=== PATIENT | female | born 1960 | race Caucasian/White ===

== ENCOUNTER → 2017-08-06 | Outpatient (CLI) | payer OTHER ==
[~2017-08-06] MED LIST: CHOL100010 PO; CITA10TA8 PO; LEVO50TA6 PO; MULT-506 PO; PANT40TA PO
[2017-08-06 13:20] LABS: BASO % 0.5 %; BASO ABS # 0.04 K/uL (0-0.2); COMPLETE YES; EOS % 1.4 %; HEMATOCRIT 39.6 % (37-47); IG% 0.3 %; LYMPH % 36.2 %; LYMPH ABS # 2.87 K/uL (1.2-3.4); MEAN CELL VOLUME 90.8 fL (80-100); MEAN CORPUSCULAR HEMOGLOBIN 29.6 pg (25-34); MEAN CORPUSCULAR HGB CONC 32.6 g/dl (32-36); MEAN PLATELET VOLUME 10.5 fL (7.4-10.4); MONO % 11.1 %; NEUT % 50.5 %; PLATELET COUNT 440 K/uL (130-400); RED BLOOD COUNT 4.36 M/uL (4.2-5.4); WHITE BLOOD COUNT 7.92 K/uL (4.8-10.8)
[2017-08-06 13:49] LABS: ESTIMATED AVERAGE GLUCOSE 114 mg/dl; HA1C FLAG Normal (Normal)
[2017-08-06 13:51] LABS: ALT/SGPT 17 U/L (12-78); AST/SGOT 18 U/L (15-37); BLOOD UREA NITROGEN 24 mg/dl (7-18); BUN/CREATININE RATIO 25.9 (10-20); CALCIUM 9.7 mg/dl (8.5-10.1); CARBON DIOXIDE 25 mmol/L (21-32); CHLORIDE 102 mmol/L (98-107); CHOLESTEROL 220 mg/dl (0-200); CREATININE 0.93 mg/dl (0.60-1.20); GLUCOSE 75 mg/dl (70-99); MAGNESIUM 2.1 mg/dl (1.8-2.4); POTASSIUM 3.9 mmol/L (3.5-5.1); SODIUM 134 mmol/L (136-145); TRIGLYCERIDES 162 mg/dl (0-150); VERY LOW DENSITY LIPOPROT CALC 32 mg/dl
[2017-08-06 14:00] LABS: ALB/GLOB RATIO 1.1 (0.9-2); ALKALINE PHOSPHATASE 62 U/L (45-117); CHOLESTEROL/HDL RATIO 4.2; HDL CHOLESTEROL 53 mg/dl; LDL CHOLESTEROL CALCULATED 135 mg/dl; PHOSPHORUS 3.1 mg/dl (2.5-4.9)
[2017-08-06 14:53] LABS: INSULIN FASTING 7.6 mU/L (3-25)
[2017-08-09 15:00] LABS: ALBUMIN 4.2 G/DL (3.8-4.8); GAMMA GLOBULIN 0.8 G/DL (0.8-1.7); TOTAL PROTEIN 6.7 G/DL (6.2-8.3)
== END | disposition home or self-care (01) ==
LOC: C.LABMFLN 08:39
PROVIDERS: ATTEND Internal Medicine Endocrinology, Diabetes & Metabolism
DX: E27.1 Primary adrenocortical insufficiency (principal); E53.8 Deficiency of other specified B group vitamins; E03.9 Hypothyroidism, unspecified; E55.9 Vitamin D deficiency, unspecified; D51.0 Vitamin B12 deficiency anemia due to intrinsic factor deficiency

== ENCOUNTER 2019-05-29 22:41 | Inpatient (IN) ==
[2019-05-29] MEDS ORDERED: SODIUM CHLORIDE 0.9% 1000ML 2,000 ML IV ONE (22:54)
[2019-05-29] MEDS ORDERED: HYDROCORTISONE SOD SUCCINATE 100 MG/2 ML VIAL IV STA (23:03)
[2019-05-29] MEDS ORDERED: CEFEPIME 2,000 MG/20 ML VIAL IV STA (23:04)
[2019-05-29] MEDS ORDERED: VANCOMYCIN CONSULT ACTIVE PRN (23:04)
[2019-05-29] MEDS ORDERED: VANCOMYCIN HCL 1,250 MG in SODIUM CHLORIDE 0.9% 500 ML IV ONE (23:04)
[2019-05-29 23:21] LABS: Basophils # (auto) 0.01 K/uL (0-0.2); Basophils % (auto) 0.1 %; Hematocrit (blood only) 41.9 % (37-47); Hemoglobin 15.3 g/dL (12.0-16.0); Immature Granulocytes # (auto) 0.09 K/uL (0.00-0.02); Immature Granulocytes % (auto) 0.5 %; Lymphocytes # (auto) 1.24 K/uL (1.2-3.4); Lymphocytes % (auto) 6.3 %; Mean Corpuscular Hgb Conc 36.5 g/dL (32-36); Mean Platelet Volume 10.9 fL (7.4-10.4); Monocytes # (auto) 0.91 K/uL (0.11-0.59); Monocytes % (auto) 4.6 %; Neutrophils # (auto) 17.49 K/uL (1.4-6.5); Neutrophils % (auto) 88.5 %; Platelet Count 330 K/uL (130-400); RDW Coefficient of Variation 12.5 % (11.5-14.5); RDW Standard Deviation 39.3 fL (36.4-46.3); Red Blood Count 4.87 M/uL (4.2-5.4); White Blood Count 19.74 K/uL (4.8-10.8)
[2019-05-29 23:33] LABS: INR 1.1 (0.9-1.1); Partial Thromboplastin Ratio 1.1; Prothrombin Time 11.4 Seconds (9.0-12.0)
[2019-05-29 23:37] LABS: Base Excess VBG -2.5 mEq/L; HCO3 VBG 18 mmol/L; PCO2 VBG 22 mmHg (38-50); PO2 VBG 26 mmHg; pH VBG 7.52 (7.36-7.41)
[2019-05-29 23:39] LABS: Albumin Level 4.1 gm/dl (3.4-5.0); BUN Creatinine Ratio 14.6 (10-20); Bilirubin Direct 0.3 mg/dl (0-0.2); Creatinine Clr Calc Pharmacy 18.8 ml/min; Est GFR (African American) 18.7; Est GFR (Non-African American) 16.1; Magnesium 1.9 mg/dl (1.8-2.4); Potassium 3.9 mmol/L (3.5-5.1)
[2019-05-29 23:45] LABS: Oxygen Saturation VBG < 60.0 %
[2019-05-29 23:53] LABS: Bilirubin,Total 1.8 mg/dl (0.2-1); Globulin 4.3 gm/dl (2.5-4.0); Phosphorus 2.6 mg/dl (2.5-4.9); Total Protein 8.4 gm/dl (6.4-8.2); Troponin I 0.05 ng/ml (0-0.045)
--- NOTE | 2019-05-30 00:04 | Emergency Department Note ---
Entered by Lissy Purcell acting as a scribe for Tavo Duke MD History of Present Illness General Chief complaint: Flu Like Symptoms Stated complaint: FLU, PAIN, SOB, ANNE'S DISEASE Time Seen by Provider: 05/29/19 22:54 Source: patient History of Present Illness Onset (ago): day(s) 1 Location: chest Pain Consistency: + other (persistent ) Maximum Pain Intensity: 6 Quality: + other (cough and congestion) Associated symptoms: + cough and + fever/chills Treatments prior to arrival: other The patient is a 58 year old female who presents to the Emergency Room with complaints of persistent cough and congestion beginning yesterday. The patient states that she has felt feverish during this time, but states that she has not measured her temperature. The patient reports coughing up some phlegm after she eats. 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 Home Medications Home Medications Medication Instructions Recorded Confirmed Type cholecalciferol (vitamin D3) 1,000 unit PO DAILY 05/30/19 05/30/19 History [Vitamin D3] hydrocortisone See Rx Instructions .ROUTE .COMPLEX 05/30/19 05/30/19 History levothyroxine 50 mcg PO DAILY 05/30/19 05/30/19 History multivitamin [Multiple Vitamins] 1 tab PO DAILY 05/30/19 05/30/19 History trazodone 50 mg PO HS 05/30/19 05/30/19 History Allergies Allergy/AdvReac Type Severity Reaction Status Date / Time acetaminophen Allergy Unknown insomnia,it Verified 01/16/16 13:45 ney fludrocortisone Allergy Unknown Palpitations,nightmares, Verified 05/30/19 03:41 numbness in hands hydrocodone Allergy Unknown insomnia,it Verified 01/16/16 13:45 ney Past Med/Surg History Medical History Anne disease Family History Other No significant family history Social History Preferred Language: Bulgarian Communication Ability: Effective Business Professor Required: No Beliefs That Will Affect Care: None Current Living Situation: Spouse Current Living Situation Comment: 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 and A total of 10 systems reviewed and were otherwise negative Physical Exam Vital Signs Vital Signs - 24 hr 05/29/19 22:45 05/29/19 23:15 05/29/19 23:25 Temperature 36.7 C Temperature Source Oral Sepsis Recent Fever Within 48 Hours No Sepsis New/Unexplained Change in Mental Status No Sepsis Action Taken by Nursing No Action Required Pulse Rate 111 H Pulse Rate [Apical] 92 H Pulse Rhythm Regular Pulse Strength Normal Respiratory Rate 22 20 Respiratory Effort / Characteristics Non-Labored Spontaneous Respiratory Depth Normal Respiratory Pattern Regular Blood Pressure 74/44 L Blood Pressure [Left Arm] 107/65 Blood Pressure Mean 54 Blood Pressure Mean [Left Arm] 79 Pulse Oximetry 98 98 98 Oxygen Delivery Method Room Air Room Air Room Air 05/29/19 23:31 05/29/19 23:50 05/30/19 00:00 Temperature Temperature Source Sepsis Recent Fever Within 48 Hours Sepsis New/Unexplained Change in Mental Status Sepsis Action Taken by Nursing Pulse Rate 87 88 Pulse Rate [Apical] 88 Pulse Rhythm Pulse Strength Respiratory Rate 20 18 18 Respiratory Effort / Characteristics Respiratory Depth Respiratory Pattern Blood Pressure 107/65 113/94 Blood Pressure [Left Arm] 113/94 Blood Pressure Mean 79 100 Blood Pressure Mean [Left Arm] 100 Pulse Oximetry 97 Oxygen Delivery Method Room Air GENERAL: Awake, alert, ill-appearing, in no distress HENT: Normocephalic, atraumatic. Oropharynx with dry mucous membranes and otherwise unremarkable. EYES: Normal conjunctiva. Sclera non-icteric. EOMI. No nystamgus. PEARRL. NECK: Supple. No nuchal rigidity. FROM. No JVD. RESPIRATORY: CTAB. CARDIAC: Tachycardic rate, normal rhythm. Extremities warm and well perfused. Pulses equal. ABDOMEN: Soft, non-distended. No tenderness to palpation. No rebound or guarding. No masses. RECTAL: Deferred. MUSCULOSKELETAL: Chest examination reveals no tenderness. The back is symmetrical on inspection without obvious abnormality. There is no CVA tenderness to palpation. No joint edema. LOWER EXTREMITIES: Calves are equal size bilaterally and non-tender. No edema. No discoloration. NEURO: Normal sensorium. No sensory or motor deficits noted. SKIN: Cool and clammy. Mild hyperpigmentation of skin. No rash or jaundice noted. Course 2259: Past medical records reviewed. The patient was evaluated in room B3B. A complete history and physical exam was performed. 2335: I [facility] the [facility] and he was made aware of the patient. 0138: I discussed the [facility] who accepts the patient for further evaluation. Administered Medications Enoxaparin Sodium (Lovenox) 30 mg SQ Q24H [facility] Stop: 06/29/19 08:59 Last Admin: 05/30/19 08:15 Dose: Not Given Documented by: [id number] Ceftriaxone Sodium 1,000 mg/ (Dextrose) 60 mls @ 100 mls/hr IV Q24H [place]; Protocol Stop: 06/01/19 07:59 Last Infusion: 05/30/19 08:50 Dose: 0 mls/hr Documented by: [id number] Admin: 05/30/19 08:14 Dose: 100 mls/hr Documented by: [id number] Azithromycin 500 mg/ Dextrose 255 mls @ 125 mls/hr IV Q24H [place]; Protocol Stop: 06/01/19 09:59 Last Admin: 05/30/19 10:32 Dose: 125 mls/hr Documented by: [id number] Famotidine 20 mg/ Syringe 5 mls @ 2.5 mls/min IV Q12H [place] Stop: 06/29/19 08:59 Last Admin: 05/30/19 09:32 Dose: 2.5 mls/min Documented by: [id number] Hydrocortisone Sodium (Succinate 100 mg/ Syringe) 2 mls @ 4 mls/min IV Q8H [place] Stop: 06/29/19 07:59 Last Admin: 05/30/19 08:14 Dose: 4 mls/min Documented by: [id number] Sodium Chloride (Nss 1000ml) 1,000 mls @ 125 mls/hr IV .Q8H [place] Stop: 06/29/19 07:29 Last Admin: 05/30/19 08:13 Dose: 125 mls/hr Documented by: [id number] Levothyroxine Sodium (Synthroid) 50 mcg PO DAILYBB [place] Stop: 06/29/19 06:29 Last Admin: 05/30/19 05:54 Dose: 50 mcg Documented by: [id number] Multivitamins (Multivitamin Tab) 1 tab PO DAILY [place] Stop: 06/29/19 08:59 Last Admin: 05/30/19 08:15 Dose: 1 tab Documented by: [id number] Vitamin D (Vitamin D3) 1,000 units PO DAILY [place] Stop: 06/29/19 08:59 Last Admin: 05/30/19 08:15 Dose: 1,000 units Documented by: [id number] Discontinued Medications Hydrocortisone Sodium Succinate (Solu-Cortef) 100 mg IV NOW STA Stop: 05/29/19 23:04 Last Admin: 05/29/19 23:22 Dose: 100 mg Documented by: [id number] Sodium Chloride (Nss 1000ml) 2,000 mls @ 999 mls/hr IV .Q2H1M ONE Stop: 05/30/19 00:54 Last Infusion: 05/30/19 01:20 Dose: 0 mls/hr Documented by: [id number] Admin: 05/29/19 23:08 Dose: 999 mls/hr Documented by: [id number] Cefepime HCl (Maxipime) 2,000 mg in 20 mls @ 5 mls/min IV NOW STA; Protocol Stop: 05/29/19 23:07 Last Admin: 05/29/19 23:22 Dose: 5 mls/min Documented by: [id number] Vancomycin HCl 1,250 mg/ (Sodium Chloride) 525 mls @ 200 mls/hr IV NOW ONE; Protocol Stop: 05/30/19 01:41 Last Infusion: 05/30/19 03:18 Dose: 0 mls/hr Documented by: [id number] Admin: 05/30/19 00:40 Dose: 200 mls/hr Documented by: [id number] Doxycycline Hyclate 100 mg/ (Dextrose) 110 mls @ 50 mls/hr IV NOW STA Stop: 05/30/19 02:47 Last Infusion: 05/30/19 04:09 Dose: 0 mls/hr Documented by: [id number] Admin: 05/30/19 01:57 Dose: 50 mls/hr Documented by: [id number] Famotidine (Pepcid 20mg Iv Push) 20 mg in 5 mls @ 2.5 mls/min IV NOW STA Stop: 05/30/19 01:05 Last Admin: 05/30/19 01:26 Dose: 2.5 mls/min Documented by: [id number] Parenteral Electrolytes (Normosol-R) 500 mls @ 999 mls/hr IV .Q31M ONE Stop: 05/30/19 08:14 Last Infusion: 05/30/19 10:34 Dose: 0 mls/hr Documented by: [id number] Admin: 05/30/19 09:50 Dose: 999 mls/hr Documented by: [id number] Medical Decision Making Differential Diagnosis Differential diagnosis: Etiologies such as viral syndrome, otitis, pharyngitis, pneumonia, influenza, meningitis, urinary tract infection, sepsis, bacteremia, as well as others were entertained. Medical Records Attestation: I reviewed the patient's medical records. Home Medications Current Medication List: was personally reviewed by me Laboratory Data Attestation: I reviewed the patient's lab results. Result diagrams: 05/29/19 23:05 05/29/19 23:05 Lab Results 05/29/19 05/29/19 05/29/19 Range/Units 23:05 23:05 23:05 WBC 19.74 H (4.8-10.8) K/uL RBC 4.87 (4.2-5.4) M/uL Hgb 15.3 (12.0-16.0) g/dL Hct 41.9 (37-47) % MCV 86.0 (80-100) fL MCH 31.4 (25-34) pg MCHC 36.5 H (32-36) g/dL RDW Std Deviation 39.3 (36.4-46.3) fL RDW Coeff of Kait 12.5 (11.5-14.5) % Plt Count 330 (130-400) K/uL MPV 10.9 H (7.4-10.4) fL Immature Gran % (Auto) 0.5 % Neut % (Auto) 88.5 % Lymph % (Auto) 6.3 % [place] % (Auto) 4.6 % Eos % (Auto) 0.0 % Baso % (Auto) 0.1 % Immature Gran # (Auto) 0.09 H (0.00-0.02) K/uL Neut # (Auto) 17.49 H (1.4-6.5) K/uL Lymph # (Auto) 1.24 (1.2-3.4) K/uL [place] # (Auto) 0.91 H (0.11-0.59) K/uL Eos # (Auto) 0.00 (0-0.5) K/uL Baso # (Auto) 0.01 (0-0.2) K/uL PT 11.4 (9.0-12.0) Seconds INR 1.1 (0.9-1.1) APTT 31.0 (21.0-31.0) Seconds PTT Ratio 1.1 VBG pH (7.36-7.41) VBG pCO2 (38-50) mmHg VBG pO2 mmHg VBG HCO3 mmol/L VBG O2 Saturation % VBG Base Excess mEq/L Barometric Pressure mm/Hg Sodium (136-145) mmol/L Potassium (3.5-5.1) mmol/L Chloride (98-107) mmol/L Carbon Dioxide (21-32) mmol/L Anion Gap (3-11) BUN (7-18) mg/dl Creatinine (0.6-1.2) mg/dl Est Cr Clr Drug Dosing ml/min Est GFR ( Amer) Est GFR (Non-Af Amer) BUN/Creatinine Ratio (10-20) Glucose (70-99) mg/dl Lactate (0.4-2.0) mmol/L Calcium (8.5-10.1) mg/dl Phosphorus (2.5-4.9) mg/dl Magnesium (1.8-2.4) mg/dl Total Bilirubin (0.2-1) mg/dl Direct Bilirubin (0-0.2) mg/dl AST (15-37) U/L ALT (12-78) U/L Alkaline Phosphatase (45-117) U/L Troponin I (0-0.045) ng/ml Total Protein (6.4-8.2) gm/dl Albumin (3.4-5.0) gm/dl Globulin (2.5-4.0) gm/dl Albumin/Globulin Ratio (0.9-2) Procalcitonin 17.31 H (0-0.5) ng/ml TSH (0.300-4.500) uIu/ml Urine Color Urine Appearance (Clear) Urine pH (4.5-7.5) Ur Specific [place] (1.000-1.030) Urine Protein (Negative) Urine Glucose (UA) (Negative) Urine Ketones (Negative) Urine Blood (Negative) Urine Nitrite (Negative) Urine Bilirubin (Negative) Urine Urobilinogen (Negative) Ur Leukocyte Esterase (Negative) Urine WBC (Auto) (0-5) /hpf Urine RBC (Auto) (0-4) /hpf U Hyaline Cast (Auto) (0-5) /lpf U Epithel Cells (Auto) (0-5) /lpf Urine Bacteria (Auto) (Negative) Urine Mucus (None Prsent) Urine Yeast 05/29/19 05/29/19 05/29/19 Range/Units 23:05 23:05 23:23 WBC (4.8-10.8) K/uL RBC (4.2-5.4) M/uL Hgb (12.0-16.0) g/dL Hct (37-47) % MCV (80-100) fL MCH (25-34) pg MCHC (32-36) g/dL RDW Std Deviation (36.4-46.3) fL RDW Coeff of Kait (11.5-14.5) % Plt Count (130-400) K/uL MPV (7.4-10.4) fL Immature Gran % (Auto) % Neut % (Auto) % Lymph % (Auto) % [place] % (Auto) % Eos % (Auto) % Baso % (Auto) % Immature Gran # (Auto) (0.00-0.02) K/uL Neut # (Auto) (1.4-6.5) K/uL Lymph # (Auto) (1.2-3.4) K/uL [place] # (Auto) (0.11-0.59) K/uL Eos # (Auto) (0-0.5) K/uL Baso # (Auto) (0-0.2) K/uL PT (9.0-12.0) Seconds INR (0.9-1.1) APTT (21.0-31.0) Seconds PTT Ratio VBG pH 7.52 H (7.36-7.41) VBG pCO2 22 L (38-50) mmHg VBG pO2 26 mmHg VBG HCO3 18 mmol/L VBG O2 Saturation < 60.0 % VBG Base Excess -2.5 mEq/L Barometric Pressure 728.2 mm/Hg Sodium 133 L (136-145) mmol/L Potassium 3.9 (3.5-5.1) mmol/L Chloride 98 (98-107) mmol/L Carbon Dioxide 18 L (21-32) mmol/L Anion Gap 17.0 H (3-11) BUN 45 H (7-18) mg/dl Creatinine 3.05 H (0.6-1.2) mg/dl Est Cr Clr Drug Dosing 18.8 ml/min Est GFR ( Amer) 18.7 Est GFR (Non-Af Amer) 16.1 BUN/Creatinine Ratio 14.6 (10-20) Glucose 174 H (70-99) mg/dl Lactate 2.5 H* (0.4-2.0) mmol/L Calcium 10.0 (8.5-10.1) mg/dl Phosphorus 2.6 (2.5-4.9) mg/dl Magnesium 1.9 (1.8-2.4) mg/dl Total Bilirubin 1.8 H (0.2-1) mg/dl Direct Bilirubin 0.3 H (0-0.2) mg/dl AST 31 (15-37) U/L ALT 39 (12-78) U/L Alkaline Phosphatase 67 (45-117) U/L Troponin I 0.050 H* (0-0.045) ng/ml Total Protein 8.4 H (6.4-8.2) gm/dl Albumin 4.1 (3.4-5.0) gm/dl Globulin 4.3 H (2.5-4.0) gm/dl Albumin/Globulin Ratio 1.0 (0.9-2) Procalcitonin (0-0.5) ng/ml TSH 1.510 (0.300-4.500) uIu/ml Urine Color Urine Appearance (Clear) Urine pH (4.5-7.5) Ur Specific [place] (1.000-1.030) Urine Protein (Negative) Urine Glucose (UA) (Negative) Urine Ketones (Negative) Urine Blood (Negative) Urine Nitrite (Negative) Urine Bilirubin (Negative) Urine Urobilinogen (Negative) Ur Leukocyte Esterase (Negative) Urine WBC (Auto) (0-5) /hpf Urine RBC (Auto) (0-4) /hpf U Hyaline Cast (Auto) (0-5) /lpf U Epithel Cells (Auto) (0-5) /lpf Urine Bacteria (Auto) (Negative) Urine Mucus (None Prsent) Urine Yeast 05/30/19 Range/Units 00:45 WBC (4.8-10.8) K/uL RBC (4.2-5.4) M/uL Hgb (12.0-16.0) g/dL Hct (37-47) % MCV (80-100) fL MCH (25-34) pg MCHC (32-36) g/dL RDW Std Deviation (36.4-46.3) fL RDW Coeff of Kait (11.5-14.5) % Plt Count (130-400) K/uL MPV (7.4-10.4) fL Immature Gran % (Auto) % Neut % (Auto) % Lymph % (Auto) % [place] % (Auto) % Eos % (Auto) % Baso % (Auto) % Immature Gran # (Auto) (0.00-0.02) K/uL Neut # (Auto) (1.4-6.5) K/uL Lymph # (Auto) (1.2-3.4) K/uL [place] # (Auto) (0.11-0.59) K/uL Eos # (Auto) (0-0.5) K/uL Baso # (Auto) (0-0.2) K/uL PT (9.0-12.0) Seconds INR (0.9-1.1) APTT (21.0-31.0) Seconds PTT Ratio VBG pH (7.36-7.41) VBG pCO2 (38-50) mmHg VBG pO2 mmHg VBG HCO3 mmol/L VBG O2 Saturation % VBG Base Excess mEq/L Barometric Pressure mm/Hg Sodium (136-145) mmol/L Potassium (3.5-5.1) mmol/L Chloride (98-107) mmol/L Carbon Dioxide (21-32) mmol/L Anion Gap (3-11) BUN (7-18) mg/dl Creatinine (0.6-1.2) mg/dl Est Cr Clr Drug Dosing ml/min Est GFR ( Amer) Est GFR (Non-Af Amer) BUN/Creatinine Ratio (10-20) Glucose (70-99) mg/dl Lactate (0.4-2.0) mmol/L Calcium (8.5-10.1) mg/dl Phosphorus (2.5-4.9) mg/dl Magnesium (1.8-2.4) mg/dl Total Bilirubin (0.2-1) mg/dl Direct Bilirubin (0-0.2) mg/dl AST (15-37) U/L ALT (12-78) U/L Alkaline Phosphatase (45-117) U/L Troponin I (0-0.045) ng/ml Total Protein (6.4-8.2) gm/dl Albumin (3.4-5.0) gm/dl Globulin (2.5-4.0) gm/dl Albumin/Globulin Ratio (0.9-2) Procalcitonin (0-0.5) ng/ml TSH (0.300-4.500) uIu/ml Urine Color Dark Yellow Urine Appearance Cloudy A (Clear) Urine pH 5.0 (4.5-7.5) Ur Specific [place] 1.021 (1.000-1.030) Urine Protein 1+ H (Negative) Urine Glucose (UA) Negative (Negative) Urine Ketones 1+ H (Negative) Urine Blood 1+ H (Negative) Urine Nitrite Negative (Negative) Urine Bilirubin Negative (Negative) Urine Urobilinogen Negative (Negative) Ur Leukocyte Esterase 1+ H (Negative) Urine WBC (Auto) 5-10 H (0-5) /hpf Urine RBC (Auto) 0-4 (0-4) /hpf U Hyaline Cast (Auto) >30 H (0-5) /lpf U Epithel Cells (Auto) >30 H (0-5) /lpf Urine Bacteria (Auto) Negative (Negative) Urine Mucus Present A (None Prsent) Urine Yeast Not Reportable Imaging Data Attestation: I personally reviewed and interpreted this imaging study as follows: My Impression: CHEST X-RAY: No focal infiltrate. ECG Data Attestation: I personally reviewed and interpreted this ECG as follows: Indication: tachycardia Rate (beats per minute): 86 Rhythm: normal sinus Findings: + other (nonspecific T wave abnormalities) and + prolonged QT (538); no acute ischemic change Blood Pressure Blood Pressure Findings: Normal blood pressure MDM Narrative The patient is a pleasant 58-year-old woman with a past medical history of Ad dison's disease who presents emergency department with cough congestion and feverishness and chills over the past couple of days but continued to feel worse despite taking as needed hydrocortisone at home per hpi. On arrival patient is ill-appearing, afebrile with heart rate in the 90-100s but hypotensive with systolic blood pressure in the 70s. She is mentating normally. She appears clinically dry. Skin is cool and clammy. Given the patient's immune compromised status she is managed for sepsis with blood cultures drawn and treated empirically with cefepime, vancomycin, doxycycline. She was given 2 L of normal saline and given her hypotension she was treated with stress dose hydrocortisone, 100 mg IV. EKG without overt acute ischemia. Chest x-ray per my preliminary review with no focal infiltrates. WBC 19.7. H/H and platelets within normal limits. VBG demonstrates alkalosis with pH of 7.5 and PCO2 of 22 reflecting the patient's hyperventilation on arrival. Lactate 2.5. Chemistry demonstrates an anion gap acidosis with anion gap of 17 and bicarb of 18 as well as acute renal failure with a creatinine of 3. Total bilirubin 1.8 and direct bilirubin of 0.3. LFTs otherwise unremarkable. Troponin elevated 0.05 likely demand in the setting of the patient's critical illness. Procalcitonin 17 raising suspicion for sepsis. UA with WBC 5-10 but no bacteria and epithelial c ells >30, not convincing for infection. Upon re-evaluation Patient slightly improved after IVF hydration an stress dose steroids with BP 110s/90s. Case was discussed with Dr. Daniel, [facility] hospitalist, who will evaluate the patient for admission. Impression & Plan Sepsis, Acute renal failure, Acute adrenal insufficiency, Elevated troponin Critical Care Time Critical Care Time: Yes Total Critical Care Time: 80 I have personally spent 80 minutes of critical care time in the direct management of this patient. This includes bedside care, interpretation of diagnostic studies, and testing, discussion with consultants, patient, and famil y members, and other required patient management activities. This 80 minutes is in excess of all separately billable procedures. Discharge Plan Visit Data *Final* Discharge Date/Time: 05/30/19 02:30 Chief Complaint: Flu Like Symptoms Stated Complaint: FLU, PAIN, SOB, ANNE'S DISEASE ED Provider: Tavo Duke Discharge Problem: Sepsis, Acute renal failure, Acute adrenal insufficiency, Elevated troponin Patient Disposition: Admitted As Inpatient Discharge Instructions Interventions: ED Discharge Assessment Last Done: 05/30/19 02:30 Discharge Problem: Sepsis Qualifiers: Sepsis type: sepsis due to unspecified organism Qualified Code(s): A41.9 - Sepsis, unspecified organism Acute renal failure Qualifiers: Acute renal failure type: unspecified Qualified Code(s): N17.9 - Acute kidney failure, unspecified The scribe's documentation has been prepared under my direction and personally reviewed by me in its entirety. I confirm that the note above accurately reflects all work, treatment, procedures, and medical decision making performed by me.
[2019-05-30] MEDS ORDERED: DOXYCYCLINE HYCLATE 100 MG in DEXTROSE 5% 100 ML IV STA (00:36)
--- NOTE | 2019-05-30 00:59 | History & Physical Report ---
Date of Service May 30, 2019 Assessment & Plan (1) [place] disease: [place] disease with acute adrenal insufficiency likely secondary to sepsis and acute kidney injury- Patient is not able to take fludrocortisone due to allergic reaction. She did bolus herself with oral hydrocortisone as she has been directed prior to hospital. Place on hydrocortisone 100 mg IV every 8 hours. Follow clinical response. Treat underlying process. Present on Admission?: Yes (2) Acute adrenal insufficiency: See above Present on Admission?: Yes (3) Acute kidney injury: Creatinine 3.05 upon admission, with baseline 0.93 on 08/06/2017. Rehydrating for septic protocol, with normal saline at 30 mils per kilogram, and then continue rehydration with IV fluids. Follow serial laboratories in the a.m. Further management based on progress with laboratories. Present on Admission?: Yes (4) Sepsis: Sepsis with hypotension responsive to IV fluids, with lowest blood pressure 85/60. Procalcitonin elevated 17.31, and lactate elevated 2.5. Her principal area of symptomatology is pulmonary. Empiric treatment with ceftriaxone IV and azithromycin IV. Follow culture results. Present on Admission?: Yes (5) Hypotension: See above Present on Admission?: Yes (6) Elevated troponin: Troponin is mildly elevated at 0.05. Patient has no symptoms referable to chest discomfort. Likely associate with acute kidney injury. Will follow serial troponins and consult cardiology. Monitor Present on Admission?: Yes (7) Hyperglycemia: May be part of a stress response, may be part of increased dosages of oral hydrocortisone that she bolused herself with. Check hemoglobin A1c Present on Admission?: Yes (8) Hypothyroidism (acquired): Continue levothyroxine sodium 50 mcg daily. TSH level is normal. Present on Admission?: Yes History of Present Illness Chief Complaint: The patient presents to the emergency department with flulike symptoms, generalized myalgias and arthralgias, and shortness of breath, without clear cause. Primary Care Provider: Harlan Garay MD The patient is a 50-year-old female with past medical history including [place] disease, who had developed generalized myalgias arthralgias and flu type symptoms over the past 48 hours. She had taken additional hydrocortisone pills that she is directed when she gets ill, but has had significant progression of symptoms. She has not had any sick exposures or recent travels. She reports that she feels very cold and had difficulty stopping shivering. She is having significant reflux at this time. Allergies Allergy/AdvReac Type Severity Reaction Status Date / Time acetaminophen Allergy Unknown insomnia,it Verified 01/16/16 13:45 ney fludrocortisone Allergy Unknown Palpitations,nightmares, Verified 05/30/19 03:41 numbness in hands hydrocodone Allergy Unknown insomnia,it Verified 01/16/16 13:45 ney Home Medications Home Medications Medication Instructions Recorded Confirmed Type cholecalciferol (vitamin D3) 1,000 unit PO DAILY 05/30/19 05/30/19 History [Vitamin D3] hydrocortisone See Rx Instructions .ROUTE .COMPLEX 05/30/19 05/30/19 History levothyroxine 50 mcg PO DAILY 05/30/19 05/30/19 History multivitamin [Multiple Vitamins] 1 tab PO DAILY 05/30/19 05/30/19 History trazodone 50 mg PO HS 05/30/19 05/30/19 History Past Med/Surg History Medical History [place] disease Family History Other No significant family history Social History Preferred Language: Irish Communication Ability: Effective Motor Checker Required: No Beliefs That Will Affect Care: None Current Living Situation: Spouse Current Living Situation Comment: 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), 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 Other Information That Helps Us Care for You: No Feels Safe at Home: Yes Safety Concerns: Feels Safe At This Time Smoking Status: Never smoker Do You Dip or Chew Tobacco: No Second Hand Exposure: No Hx Alcohol Use: No Hx Substance Use: No Review of Systems Review of Systems: The patient denies palpitations, lower extremity swelling, sore throat, nausea, vomiting, diarrhea , constipation, pelvic pain, blood in urine or stool, dysuria, urinary frequency or urgency, lightheadedness, dizziness, headache, memory loss, loss of consciousness, rash, abnormal bruising or bleeding, imbalance, focal or generalized weakness, numbness or tingling in arms or legs, back or neck pain, or night sweats. The review of systems is otherwise negative other than for that already noted above, and at least 10 systems have been reviewed. Physical Exam Physical Exam: The patient is awake, alert and oriented 3, looks fatigued, is shivering, normocephalic and atraumatic, lying in bed and in mild to moderate distress. HEENT--PERRL, EOMI, mucous membranes and oropharynx dry. Neck--supple. No JVD. No bruits. Thyroid normal, trachea midline, no adenopathy. Heart--normal S1 and S2. No murmurs, rubs or gallops. Lungs--clear bilaterally, no respiratory distress, no accessory muscle use. Abdomen--normal bowel sounds and soft. Nontender. Nondistended, no hernias or masses, no organomegaly. Extremities--no cyanosis or clubbing. No edema. There are good distal pulses b/l. Dermatologic--normal skin turgor, normal color, no abnormal lymph nodes, no rash. Neurologic--cranial nerves II through XII grossly intact. Rheumatologic--normal range of motion. Psychiatric--normal affect. Results & Data Vital Signs (Past 12 Hours) Vital Signs Temp Pulse Pulse Resp BP BP Pulse Ox 05/30/19 00:00 88 18 113/94 97 05/29/19 23:25 92 H 20 107/65 98 05/29/19 23:15 98 05/29/19 22:45 98.1 F 111 H 22 74/44 L 98 Laboratory Results Laboratory Results WBC 19.74 K/uL (4.8-10.8) H 05/29/19 23:05 RBC 4.87 M/uL (4.2-5.4) 05/29/19 23:05 Hgb 15.3 g/dL (12.0-16.0) 05/29/19 23:05 Hct 41.9 % (37-47) 05/29/19 23:05 MCV 86.0 fL (80-100) 05/29/19 23:05 MCH 31.4 pg (25-34) 05/29/19 23:05 MCHC 36.5 g/dL (32-36) H 05/29/19 23:05 RDW Std Deviation 39.3 fL (36.4-46.3) 05/29/19 23:05 RDW Coeff of Kait 12.5 % (11.5-14.5) 05/29/19 23:05 Plt Count 330 K/uL (130-400) 05/29/19 23:05 MPV 10.9 fL (7.4-10.4) H 05/29/19 23:05 Immature Gran % (Auto) 0.5 % 05/29/19 23:05 Neut % (Auto) 88.5 % 05/29/19 23:05 Lymph % (Auto) 6.3 % 05/29/19 23:05 Grant % (Auto) 4.6 % 05/29/19 23:05 Eos % (Auto) 0.0 % 05/29/19 23:05 Baso % (Auto) 0.1 % 05/29/19 23:05 Immature Gran # (Auto) 0.09 K/uL (0.00-0.02) H 05/29/19 23:05 Neut # (Auto) 17.49 K/uL (1.4-6.5) H 05/29/19 23:05 Lymph # (Auto) 1.24 K/uL (1.2-3.4) 05/29/19 23:05 Grant # (Auto) 0.91 K/uL (0.11-0.59) H 05/29/19 23:05 Eos # (Auto) 0.00 K/uL (0-0.5) 05/29/19 23:05 Baso # (Auto) 0.01 K/uL (0-0.2) 05/29/19 23:05 PT 11.4 Seconds (9.0-12.0) 05/29/19 23:05 INR 1.1 (0.9-1.1) 05/29/19 23:05 APTT 31.0 Seconds (21.0-31.0) 05/29/19 23:05 PTT Ratio 1.1 05/29/19 23:05 VBG pH 7.52 (7.36-7.41) H 05/29/19 23:23 VBG pCO2 22 mmHg (38-50) L 05/29/19 23:23 VBG pO2 26 mmHg 05/29/19 23:23 VBG HCO3 18 mmol/L 05/29/19 23:23 VBG O2 Saturation < 60.0 % 05/29/19 23:23 VBG Base Excess -2.5 mEq/L 05/29/19 23:23 Barometric Pressure 728.2 mm/Hg 05/29/19 23:23 Sodium 133 mmol/L (136-145) L 05/29/19 23:05 Potassium 3.9 mmol/L (3.5-5.1) 05/29/19 23:05 Chloride 98 mmol/L (98-107) 05/29/19 23:05 Carbon Dioxide 18 mmol/L (21-32) L 05/29/19 23:05 Anion Gap 17.0 (3-11) H 05/29/19 23:05 BUN 45 mg/dl (7-18) H 05/29/19 23:05 Creatinine 3.05 mg/dl (0.6-1.2) H 05/29/19 23:05 Est Cr Clr Drug Dosing 18.8 ml/min 05/29/19 23:05 Est GFR ( Amer) 18.7 05/29/19 23:05 Est GFR (Non-Af Amer) 16.1 05/29/19 23:05 BUN/Creatinine Ratio 14.6 (10-20) 05/29/19 23:05 Glucose 174 mg/dl (70-99) H 05/29/19 23:05 Lactate 2.5 mmol/L (0.4-2.0) H* 05/29/19 23:05 Calcium 10.0 mg/dl (8.5-10.1) 05/29/19 23:05 Phosphorus 2.6 mg/dl (2.5-4.9) 05/29/19 23:05 Magnesium 1.9 mg/dl (1.8-2.4) 05/29/19 23:05 Total Bilirubin 1.8 mg/dl (0.2-1) H 05/29/19 23:05 Direct Bilirubin 0.3 mg/dl (0-0.2) H 05/29/19 23:05 AST 31 U/L (15-37) 05/29/19 23:05 ALT 39 U/L (12-78) 05/29/19 23:05 Alkaline Phosphatase 67 U/L (45-117) 05/29/19 23:05 Troponin I 0.050 ng/ml (0-0.045) H* 05/29/19 23:05 Total Protein 8.4 gm/dl (6.4-8.2) H 05/29/19 23:05 Albumin 4.1 gm/dl (3.4-5.0) 05/29/19 23:05 Globulin 4.3 gm/dl (2.5-4.0) H 05/29/19 23:05 Albumin/Globulin Ratio 1.0 (0.9-2) 05/29/19 23:05 Procalcitonin 17.31 ng/ml (0-0.5) H 05/29/19 23:05 TSH 1.510 uIu/ml (0.300-4.500) 05/29/19 23:05 Urine Color Dark Yellow 05/30/19 00:45 Urine Appearance Cloudy (Clear) A 05/30/19 00:45 Urine pH 5.0 (4.5-7.5) 05/30/19 00:45 Ur Specific [place] 1.021 (1.000-1.030) 05/30/19 00:45 Urine Protein 1+ (Negative) H 05/30/19 00:45 Urine Glucose (UA) Negative (Negative) 05/30/19 00:45 Urine Ketones 1+ (Negative) H 05/30/19 00:45 Urine Blood 1+ (Negative) H 05/30/19 00:45 Urine Nitrite Negative (Negative) 05/30/19 00:45 Urine Bilirubin Negative (Negative) 05/30/19 00:45 Urine Urobilinogen Negative (Negative) 05/30/19 00:45 Ur Leukocyte Esterase 1+ (Negative) H 05/30/19 00:45 Urine WBC (Auto) 5-10 /hpf (0-5) H 05/30/19 00:45 Urine RBC (Auto) 0-4 /hpf (0-4) 05/30/19 00:45 U Hyaline Cast (Auto) >30 /lpf (0-5) H 05/30/19 00:45 U Epithel Cells (Auto) >30 /lpf (0-5) H 05/30/19 00:45 Urine Bacteria (Auto) Negative (Negative) 05/30/19 00:45 Urine Mucus Present (None Prsent) A 05/30/19 00:45 Urine Yeast Not Reportable 05/30/19 00:45 Code Status & VTE Plan Code Status Full code VTE Prophylaxis Plan VTE Prophylaxis will be ordered: Yes PG Care Time/CCT Total # of Minutes Spent Total Time Spent with Patient: Total time spent is greater than 50% in coordination of care (as documented) at patient's floor/unit and/or counseling patient: (1) Sepsis Sepsis type: sepsis due to unspecified organism Qualified Code(s): A41.9 - Sepsis, unspecified organism
[2019-05-30] MEDS ORDERED: FAMOTIDINE 20MG IV PUSH 20 MG/5 ML SYR IV STA (01:04)
[2019-05-30 01:05] LABS: Appearance Urine Cloudy (Clear); Bacteria Urine Automated Negative (Negative); Bilirubin Urine Negative (Negative); Color Urine Dark Yellow; Epithelial Cell Urine Auto >30 /lpf (0-5); Glucose Urine UA Negative (Negative); Ketones Urine 1+ (Negative); Leukocyte Esterase Urine 1+ (Negative); Nitrite Urine Negative (Negative); Protein Urine 1+ (Negative); Specific Gravity Urine 1.021 (1.000-1.030); Urobilinogen Urine Negative (Negative)
[2019-05-30 01:34] LABS: Cast Urine Automated >30 /lpf (0-5); Mucus Urine Present (None Prsent)
[2019-05-30] MEDS ORDERED: ALUMINUM/MAGNESIUM SUSP 30 ML UDC PO PRN (02:40)
[2019-05-30] MEDS ORDERED: ONDANSETRON INJ 2 MG/ML 2 ML VIAL IV PRN (02:40)
[2019-05-30] MEDS ORDERED: MAGNESIUM HYDROXIDE SUSP 30 ML UDC PO PRN (02:40)
[2019-05-30] MEDS ORDERED: HYDROCORTISONE SOD SUCCINATE 100 MG/2 ML VIAL IV SCH (02:40)
[2019-05-30] MEDS ORDERED: POLYETHYLENE (MIRALAX) 17 GM PACK PO PRN (02:40)
[2019-05-30] MEDS: LEVOTHYROXINE SODIUM 50 MCG TABLET PO SCH (05:54)
--- NOTE | 2019-05-30 06:50 | XRay Report ---
XR chest 1V portable CLINICAL HISTORY: Sepsis dyspnea COMPARISON STUDY: 01/16/2016 FINDINGS: The bones soft tissues and hemidiaphragms are normal. The cardiomediastinal silhouette is n ormal. The lungs are clear. The pulmonary vasculature is normal. IMPRESSION: Negative chest. The above report was generated using voice recognition software. It may contain grammatical, syntax or spelling errors. Electronically signed by: Papa Mosher M.D. 05/30/2019 6:49 AM
[2019-05-30 07:04] LABS: Estimated Average Glucose 120 mg/dl
[2019-05-30] MEDS ORDERED: NORMOSOL-R 500 ML IV ONE (07:44)
--- NOTE | 2019-05-30 07:49 | Hospitalist Progress Note ---
Date of Service May 30, 2019 Assessment & Plan (1) [place]'s disease: [place]'s disease with acute adrenal insufficiency likely secondary to sepsis from a urinary source poa, and acute kidney injury- Patient is not able to take fludrocortisone due to allergic reaction. She did bolus herself with oral hydrocortisone as she has been directed prior to hospital. Place on hydrocortisone 100 mg IV every 8 hours. Pt with persistent hypotension, additional fluid bolus (2) Acute adrenal insufficiency: iv hydrocortisone (3) Acute kidney injury: Creatinine 3.05 upon admission, with baseline 0.93 on 08/06/2017. Rehydrating for septic protocol, with normal saline at 30 mils per kilogram, and then continue rehydration with IV fluids. (4) Sepsis: Sepsis with hypotension responsive to IV fluids, with lowest blood pressure 85/60. Procalcitonin elevated 17.31, and lactate elevated 2.5, repeat lactate pending. Her principal area of symptomatology is pulmonary, but cxr is without infiltrate and she has abnormal ua on intake, consider urinary source. Empiric treatment with ceftriaxone IV and azithromycin IV. Follow culture results. (5) Hypotension: See above (6) Elevated troponin: Troponin is mildly elevated at 0.05. Patient has no symptoms referable to chest discomfort. Likely demand ischemia with acute kidney injury. Will follow serial troponins and consult cardiology. Monitor (7) Hyperglycemia: May be part of a stress response, may be part of increased dosages of oral hydrocortisone that she bolused herself with. Check hemoglobin A1c (8) Hypothyroidism (acquired): Continue levothyroxine sodium 50 mcg daily. TSH level is normal. Subjective Patient is a fatigued and worn out she has no focal complaints she did have a bit of a nonproductive cough and she is having some urinary frequency but does not feel she defined definitely has a urinary tract infection blood pressures responded somewhat to steroids and volume resuscitation repeat lactic acid has trended downward however repeat troponins trended upward. She has no signs or symptoms of acute coronary syndrome Review of Systems Review of Systems: ROS: well nourished well developed. No double vision blurry vision No problems with speech or swallowing No palpitations, chest pain or pressure No Wheezing nonproductive cough No abdominal pain nausea vomiting diarrhea changes in appetite or weight Urinary frequency No focal joint pain or muscle pain No skin rashes or oral lesions No unusual bruising or bleeding No focused back pain or numbness or loss of strength No changes in memory or confusion Physical Exam Physical Exam: The patient appeared fatigued in mild distress Vital signs as documented. Blood pressure remains low Head exam is unremarkable. normocephalic, atraumatic Neck is without jugular venous distension, thyromegaly, or lymphademopathy Lungs are clear to auscultation and percussion. Nonproductive cough Cardiac exam reveals Rhythm is regular. No murmurs or rubs Abdominal exam reveals normal bowel sounds, no masses, no organomegaly Extremities are nonedematous and both pedal pulses are present Neurologic exam is A&Ox3, no focal deficits, strength is equal bilateral Psychologically seems neither anxious or depressed Skin is warm Dry with hyperpigmentation Results & Data Vital Signs (Past 12 Hours) Vital Signs Temp Pulse Pulse Pulse Resp BP BP 05/30/19 07:12 36.8 C 72 16 77/44 L 05/30/19 03:15 36.5 C 75 16 94/62 L 05/30/19 03:14 82 05/30/19 02:30 36.9 C 80 18 101/65 05/30/19 01:58 87 19 05/30/19 01:32 84 13 92/69 L 05/30/19 01:30 95 H 19 85/60 L 05/30/19 00:00 88 18 113/94 05/29/19 23:50 88 18 113/94 05/29/19 23:31 87 20 107/65 05/29/19 23:25 92 H 20 107/65 05/29/19 23:15 05/29/19 22:45 36.7 C 111 H 22 74/44 L BP Pulse Ox Pulse Ox 05/30/19 07:12 71/39 L 97 05/30/19 03:15 95 05/30/19 03:14 05/30/19 02:30 97 97 05/30/19 01:58 05/30/19 01:32 05/30/19 01:30 05/30/19 00:00 97 05/29/19 23:50 05/29/19 23:31 05/29/19 23:25 98 05/29/19 23:15 98 05/29/19 22:45 98 PG Care Time/CCT Total # of Minutes Spent Total Time Spent with Patient: Total time spent is greater than 50% in coordination of care (as documented) at patient's floor/unit and/or counseling patient: (1) Sepsis Sepsis type: sepsis due to unspecified organism Qualified Code(s): A41.9 - Sepsis, unspecified organism
[2019-05-30] MEDS: SODIUM CHLORIDE 0.9% 1000ML 1,000 ML IV SCH ×3 (08:13→23:32)
[2019-05-30] MEDS: HYDROCORTISONE SOD 100 MG in SYRINGE 0 ML IV SCH ×3 (08:14→23:32)
[2019-05-30] MEDS: cefTRIAXone SODIUM 1,000 MG in DEXTROSE 5% 50 ML IV SCH (08:14)
[2019-05-30] MEDS: ENOXAPARIN INJ 30 MG/0.3 ML SYR SQ SCH (08:15)
[2019-05-30] MEDS: CHOLECALCIFEROL 1,000 UNITS TAB PO SCH (08:15)
[2019-05-30] MEDS: MULTIVITAMIN TAB PO SCH (08:15)
--- NOTE | 2019-05-30 09:08 | Cardiology Consultation ---
Date of Consultation May 30, 2019 Assessment & Plan (1) Elevated troponin: Mrs. Cisneros is a 58 year old female with a history of Geneva's Disease, Hypothyroidism, and GERD who was admitted with presumed Urosepsis and Adrenal Insufficiency complicated by JASSI with a Creatinine of 3.05 mg/dl on admission. Her initial Troponin I was elevated at 0.050 ng/ml but EKG showed no acute changes and she did'nt have any anginal symptoms. Her Troponin level subsequently increased to 0.068 ng/ml. CXR showed no acute pulmonary processes, but urine was abnormal -- showing urine RBC's, urine WBC's, hyaline casts, +1 urine leukocyte esterase, and +1 urine protein. Patient admitted with a presump tive diagnosis of Sepsis -- possibly Urosepsis. Patient's blood cultures are negative thus far. She was started on empiric IV antibiotics, IV Hydrocortisone, and given IV fluids -- and has had significant improvement in her symptoms and her BP has improved but is still borderline low at times. Patient has not had any anginal symptoms at any time and her Echocardiogram shows an LVEF of 65% without any wall motion abnormalities -- Therefore we suspect that her Elevated Troponin I level is secondary to JASSI and her acute illness. -- No further cardiac work-up is necessary at this time. -- Continue treating acute underlying illness. -- Continue stress dose steroids. -- Continue IV fluids. -- Total cholesterol::HDL Ratio is 4.1, with an HDL of 53 mg/dl. Present on Admission?: Yes (2) Acute renal failure: -- Continue IVF's. -- Monitor daily laboratories. -- Consider nephrology consult if serum creatinine does not improve. Present on Admission?: Yes (3) Geneva's disease: -- As outlined above. -- Continue IV fluids. -- Continue IV Hydrocortisone 100 mg q 8 hours. -- Patient cannot take Florinef due to an allergy. Present on Admission?: Yes Supervising Physician Co-Signing Physician Notes Naresh Madera MD History of Present Illness Reason for Consultation: -- Elevated Troponin I Level. Requesting Physician: Jethro Arriaga MD Attending Physician: Naresh Madera MD History of Present Illness Mrs. Cisneros is a 58 year old female with a history of Geneva's Disease, Hypothyroidism, and GERD who developed Generalized Arthralgias / Myalgias, Fever, Shaking Chills, Dyspnea, Cough, and Clamminess on 05/27/2019 and felt she had the Flu. Patient had increased her home dose of Hydrocortisone accordingly when she became ill. Unfortunately her symptoms persisted and worsened which prompted her ER visit. In the ER she was noted to be hypotensive with a BP 74/44 with evidence of JASSI (Creatinine 3.05 mg/dl -- her baseline is 0.93 mg/dl), and her initial Troponin I was elevated at 0.050 ng/ml but EKG showed no acute changes and she did'nt have any anginal symptoms. Her Troponin level subsequently increased to 0.068 ng/ml. CXR showed no acute pulmonary processes, but urine was abnormal -- showing urine RBC's, urine WBC's, hyaline casts, +1 urine leukocyte esterase, and +1 urine protein. Patient admitted with a presumptive diagnosis of Sepsis -- possibly Urosepsis. Patient's blood cultures are negative thus far. She was started on empiric IV antibiotics, IV Hydrocortisone, and given IV fluids. Her BP's have improved but are still borderline low at times. Patient states that she feels significantly better now compared to when she was admitted. She denies any further fevers or chills. Appetite has improved and her dyspnea is somewhat improved. Patient has experienced occasional left lower chest pain from time to time -- but it is atypical, non-exertional, and without associated symptoms. Patient leads a relatively sedentary lifestyle but has not experienced any limiting cardiopulmonary symptoms with her day to day activities -- until she became ill with her current illness. She denies any exertional chest pain, heaviness, tightness, pressure, or discomfort. She denies any exertional neck, jaw, back, or arm pain. No orthopnea, pnd, palpitations, or syncope. Patient denies any prior cardiac history or prior cardiac events. She denies any family history of CAD or heart disease. Please note that patient was hospitalized approximately 3 years ago with a similar illness and states that her "organs were trying to shut down" then as well. Allergies Allergy/AdvReac Type Severity Reaction Status Date / Time acetaminophen Allergy Unknown insomnia,it Verified 01/16/16 13:45 ney fludrocortisone Allergy Unknown Palpitations,nightmares, Verified 05/30/19 03:41 numbness in hands hydrocodone Allergy Unknown insomnia,it Verified 01/16/16 13:45 ney tramadol Allergy Verified 05/31/19 10:46 Patient History Medical History Geneva disease Surgical History History of dilation and curettage History of total abdominal hysterectomy History of tubal ligation Family History Father Diabetes Dementia Stroke Parkinsons disease Mother Diabetes Hypertension Dementia Pure hypercholesterolemia Sister Rheumatoid arthritis Colon cancer Grandmother Stroke Brother Prostate cancer Other No significant family history Social History Preferred Language: Persian Communication Ability: Effective System Specialist Required: No Beliefs That Will Affect Care: None Current Living Situation: Spouse Current Living Situation Comment: 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 HEENT: Head is atraumatic, normocephalic. EOM's intact. Facies symmetric. No perioral cyanosis. NECK: No JVD. Carotid upstrokes + 2 bilaterally without bruits. JVP is at the level of the clavicle sitting upright. CHEST and LUNGS: Clear to auscultation throughout all lung son. No wheezes, rales, or rhonchi. CVS: S1 and S2 are regular without murmurs, gallops, or rubs. PMI is nondisplaced. No lifts, heaves, or thrills. No abdominal aortic or renal bruits. ABDOMINAL EXAM: Bowel sounds are present. No masses, organomegaly, or tenderness. EXTREMITIES: No clubbing or cyanosis. No edema. Intact posterior tibial and radial pulses. NEUROLOGIC EXAM: Patient is awake, alert, and oriented. Pleasant and cooperative. Answers questions appropriately. Speech is clear. Normal movement in all 4 extremities. Gait pattern was not assessed. EKG 05/29/2019: -- NSR at 86 bpm with prolonged QTc of 538 msec, possible LAE. -- No acute ST segment or T wave abnormalities. ECHOCARDIOGRAM 05/30/2019: -- Normal LV size, wall motion, and systolic function. -- LVEF 65% without RWMA's. Cutter V Groove's interpretation is pending. Results & Data Vital Signs (Past 12 Hours) Vital Signs Temp Pulse Pulse Pulse Resp BP BP 05/30/19 08:13 05/30/19 07:12 36.8 C 72 16 77/44 L 05/30/19 03:15 36.5 C 75 16 94/62 L 05/30/19 03:14 82 05/30/19 02:30 36.9 C 80 18 101/65 05/30/19 01:58 87 19 05/30/19 01:32 84 13 92/69 L 05/30/19 01:30 95 H 19 85/60 L 05/30/19 00:00 88 18 113/94 05/29/19 23:50 88 18 113/94 05/29/19 23:31 87 20 107/65 05/29/19 23:25 92 H 20 107/65 05/29/19 23:15 05/29/19 22:45 36.7 C 111 H 22 74/44 L BP Pulse Ox Pulse Ox 05/30/19 08:13 84/52 L 05/30/19 07:12 71/39 L 97 05/30/19 03:15 95 05/30/19 03:14 05/30/19 02:30 97 97 05/30/19 01:58 05/30/19 01:32 05/30/19 01:30 05/30/19 00:00 97 05/29/19 23:50 05/29/19 23:31 05/29/19 23:25 98 05/29/19 23:15 98 05/29/19 22:45 98 Laboratory Results Laboratory Results - last 24 hr 05/29/19 05/29/19 05/29/19 23:05 23:05 23:05 WBC 19.74 H RBC 4.87 Hgb 15.3 Hct 41.9 MCV 86.0 MCH 31.4 MCHC 36.5 H RDW Std Deviation 39.3 RDW Coeff of Kait 12.5 Plt Count 330 MPV 10.9 H Immature Gran % (Auto) 0.5 Neut % (Auto) 88.5 Lymph % (Auto) 6.3 [place] % (Auto) 4.6 Eos % (Auto) 0.0 Baso % (Auto) 0.1 Immature Gran # (Auto) 0.09 H Neut # (Auto) 17.49 H Lymph # (Auto) 1.24 [place] # (Auto) 0.91 H Eos # (Auto) 0.00 Baso # (Auto) 0.01 PT 11.4 INR 1.1 APTT 31.0 PTT Ratio 1.1 VBG pH VBG pCO2 VBG pO2 VBG HCO3 VBG O2 Saturation VBG Base Excess Barometric Pressure Sodium Potassium Chloride Carbon Dioxide Anion Gap BUN Creatinine Est Cr Clr Drug Dosing Est GFR ( Amer) Est GFR (Non-Af Amer) BUN/Creatinine Ratio Glucose Estimat Average Glucose Hemoglobin A1c Lactate Calcium Phosphorus Magnesium Total Bilirubin Direct Bilirubin AST ALT Alkaline Phosphatase Troponin I Total Protein Albumin Globulin Albumin/Globulin Ratio Procalcitonin 17.31 H TSH Urine Color Urine Appearance Urine pH Ur Specific [place] Urine Protein Urine Glucose (UA) Urine Ketones Urine Blood Urine Nitrite Urine Bilirubin Urine Urobilinogen Ur Leukocyte Esterase Urine WBC (Auto) Urine RBC (Auto) U Hyaline Cast (Auto) U Epithel Cells (Auto) Urine Bacteria (Auto) Urine Mucus Urine Yeast 05/29/19 05/29/19 05/29/19 23:05 23:05 23:23 WBC RBC Hgb Hct MCV MCH MCHC RDW Std Deviation RDW Coeff of Kait Plt Count MPV Immature Gran % (Auto) Neut % (Auto) Lymph % (Auto) [place] % (Auto) Eos % (Auto) Baso % (Auto) Immature Gran # (Auto) Neut # (Auto) Lymph # (Auto) [place] # (Auto) Eos # (Auto) Baso # (Auto) PT INR APTT PTT Ratio VBG pH 7.52 H VBG pCO2 22 L VBG pO2 26 VBG HCO3 18 VBG O2 Saturation < 60.0 VBG Base Excess -2.5 Barometric Pressure 728.2 Sodium 133 L Potassium 3.9 Chloride 98 Carbon Dioxide 18 L Anion Gap 17.0 H BUN 45 H Creatinine 3.05 H Est Cr Clr Drug Dosing 18.8 Est GFR ( Amer) 18.7 Est GFR (Non-Af Amer) 16.1 BUN/Creatinine Ratio 14.6 Glucose 174 H Estimat Average Glucose Hemoglobin A1c Lactate 2.5 H* Calcium 10.0 Phosphorus 2.6 Magnesium 1.9 Total Bilirubin 1.8 H Direct Bilirubin 0.3 H AST 31 ALT 39 Alkaline Phosphatase 67 Troponin I 0.050 H* Total Protein 8.4 H Albumin 4.1 Globulin 4.3 H Albumin/Globulin Ratio 1.0 Procalcitonin TSH 1.510 Urine Color Urine Appearance Urine pH Ur Specific [place] Urine Protein Urine Glucose (UA) Urine Ketones Urine Blood Urine Nitrite Urine Bilirubin Urine Urobilinogen Ur Leukocyte Esterase Urine WBC (Auto) Urine RBC (Auto) U Hyaline Cast (Auto) U Epithel Cells (Auto) Urine Bacteria (Auto) Urine Mucus Urine Yeast 05/30/19 05/30/19 05/30/19 00:45 06:11 06:11 WBC RBC Hgb Hct MCV MCH MCHC RDW Std Deviation RDW Coeff of Kait Plt Count MPV Immature Gran % (Auto) Neut % (Auto) Lymph % (Auto) [place] % (Auto) Eos % (Auto) Baso % (Auto) Immature Gran # (Auto) Neut # (Auto) Lymph # (Auto) [place] # (Auto) Eos # (Auto) Baso # (Auto) PT INR APTT PTT Ratio VBG pH VBG pCO2 VBG pO2 VBG HCO3 VBG O2 Saturation VBG Base Excess Barometric Pressure Sodium Potassium Chloride Carbon Dioxide Anion Gap BUN Creatinine Est Cr Clr Drug Dosing Est GFR ( Amer) Est GFR (Non-Af Amer) BUN/Creatinine Ratio Glucose Estimat Average Glucose 120 Hemoglobin A1c 5.8 H Lactate Calcium Phosphorus Magnesium Total Bilirubin Direct Bilirubin AST ALT Alkaline Phosphatase Troponin I 0.068 H* Total Protein Albumin Globulin Albumin/Globulin Ratio Procalcitonin TSH Urine Color Dark Yellow Urine Appearance Cloudy A Urine pH 5.0 Ur Specific Continental 1.021 Urine Protein 1+ H Urine Glucose (UA) Negative Urine Ketones 1+ H Urine Blood 1+ H Urine Nitrite Negative Urine Bilirubin Negative Urine Urobilinogen Negative Ur Leukocyte Esterase 1+ H Urine WBC (Auto) 5-10 H Urine RBC (Auto) 0-4 U Hyaline Cast (Auto) >30 H U Epithel Cells (Auto) >30 H Urine Bacteria (Auto) Negative Urine Mucus Present A Urine Yeast Not Reportable 05/30/19 08:10 WBC RBC Hgb Hct MCV MCH MCHC RDW Std Deviation RDW Coeff of Kait Plt Count MPV Immature Gran % (Auto) Neut % (Auto) Lymph % (Auto) [place] % (Auto) Eos % (Auto) Baso % (Auto) Immature Gran # (Auto) Neut # (Auto) Lymph # (Auto) [place] # (Auto) Eos # (Auto) Baso # (Auto) PT INR APTT PTT Ratio VBG pH VBG pCO2 VBG pO2 VBG HCO3 VBG O2 Saturation VBG Base Excess Barometric Pressure Sodium Potassium Chloride Carbon Dioxide Anion Gap BUN Creatinine Est Cr Clr Drug Dosing Est GFR ( Amer) Est GFR (Non-Af Amer) BUN/Creatinine Ratio Glucose Estimat Average Glucose Hemoglobin A1c Lactate 0.9 Calcium Phosphorus Magnesium Total Bilirubin Direct Bilirubin AST ALT Alkaline Phosphatase Troponin I Total Protein Albumin Globulin Albumin/Globulin Ratio Procalcitonin TSH Urine Color Urine Appearance Urine pH Ur Specific [place] Urine Protein Urine Glucose (UA) Urine Ketones Urine Blood Urine Nitrite Urine Bilirubin Urine Urobilinogen Ur Leukocyte Esterase Urine WBC (Auto) Urine RBC (Auto) U Hyaline Cast (Auto) U Epithel Cells (Auto) Urine Bacteria (Auto) Urine Mucus Urine Yeast Medications Administered Active Medications Generic Name Dose Route Start Last Admin Trade Name Freq PRN Reason Stop Dose Admin Al Hydrox/Mg Hydrox/Simethicone 15 ml 05/30/19 02:40 Maalox PO 06/29/19 02:39 Q4H PRN Dyspepsia Enoxaparin Sodium 30 mg 05/30/19 09:00 05/30/19 08:15 Lovenox SQ 06/29/19 08:59 Not Given Q24H [place] Ceftriaxone Sodium 1,000 mg/ 60 mls @ 100 mls/hr 05/30/19 08:00 05/30/19 08:14 Dextrose IV 06/01/19 07:59 100 mls/hr Q24H [place] Administration Protocol Azithromycin 500 mg/ Dextrose 255 mls @ 125 mls/hr 05/30/19 09:00 IV 06/01/19 08:59 DAILY [place] Famotidine 20 mg/ Syringe 5 mls @ 2.5 mls/min 05/30/19 09:00 05/30/19 09:32 IV 06/29/19 08:59 2.5 mls/min Q12H [place] Administration Hydrocortisone Sodium 2 mls @ 4 mls/min 05/30/19 08:00 05/30/19 08:14 Succinate 100 mg/ Syringe IV 06/29/19 07:59 4 mls/min Q8H [place] Administration Sodium Chloride 1,000 mls @ 125 mls/hr 05/30/19 07:30 05/30/19 08:13 Nss 1000ml IV 06/29/19 07:29 125 mls/hr .Q8H [place] Administration Levothyroxine Sodium 50 mcg 05/30/19 06:30 05/30/19 05:54 Synthroid PO 06/29/19 06:29 50 mcg DAILYBB [place] Administration Magnesium Hydroxide 30 ml 05/30/19 02:40 Milk Of Magnesia PO 06/29/19 02:39 Q12H PRN Constipation Multivitamins 1 tab 05/30/19 09:00 05/30/19 08:15 Multivitamin Tab PO 06/29/19 08:59 1 tab DAILY [place] Administration Ondansetron HCl 4 mg 05/30/19 02:40 Zofran IV 06/29/19 02:39 Q6H PRN Nausea Polyethylene Glycol 17 gm 05/30/19 02:40 Miralax Powder Packet PO 06/29/19 02:39 DAILY PRN Constipation Trazodone HCl 50 mg 05/30/19 21:00 Desyrel PO 06/29/19 20:59 HS [place] Vitamin D 1,000 units 05/30/19 09:00 05/30/19 08:15 Vitamin D3 PO 06/29/19 08:59 1,000 units DAILY [place] Administration (1) Acute renal failure Acute renal failure type: unspecified Qualified Code(s): N17.9 - Acute kidney failure, unspecified
[2019-05-30] MEDS: FAMOTIDINE 20 MG in SYRINGE 3 ML IV SCH ×2 (09:32→21:07)
[2019-05-30] MEDS: AZITHROMYCIN 500 MG in DEXTROSE 5% 250 ML IV SCH (10:32)
[2019-05-30] MEDS ORDERED: SODIUM CHLORIDE 0.9% 1000ML 500 ML IV ONE (20:57)
[2019-05-30] MEDS ORDERED: TRAZODONE HCL 50 MG TAB PO SCH (21:00)
[2019-05-30] MEDS ORDERED: SODIUM CHLORIDE 0.9% 500 ML IV SCH (21:00)
[2019-05-31] MEDS: LEVOTHYROXINE SODIUM 50 MCG TABLET PO SCH (05:10)
[2019-05-31 07:15] LABS: Albumin Globulin Ratio 0.8 (0.9-2); Albumin Level 2.5 gm/dl (3.4-5.0); BUN Creatinine Ratio 27.1 (10-20); Bilirubin,Total 0.7 mg/dl (0.2-1); Calcium 7.8 mg/dl (8.5-10.1); Creatinine Clr Calc Pharmacy 60.4 ml/min; Est GFR (African American) 76.5; Magnesium 2.1 mg/dl (1.8-2.4); Total Protein 5.5 gm/dl (6.4-8.2)
[2019-05-31] MEDS: cefTRIAXone SODIUM 1,000 MG in DEXTROSE 5% 50 ML IV SCH (08:04)
[2019-05-31] MEDS: ENOXAPARIN INJ 30 MG/0.3 ML SYR SQ SCH (08:04)
[2019-05-31] MEDS: SODIUM CHLORIDE 0.9% 1000ML 1,000 ML IV SCH (08:04)
[2019-05-31] MEDS: FAMOTIDINE 20 MG in SYRINGE 3 ML IV SCH (08:04)
[2019-05-31] MEDS: CHOLECALCIFEROL 1,000 UNITS TAB PO SCH (08:05)
[2019-05-31] MEDS: MULTIVITAMIN TAB PO SCH (08:05)
[2019-05-31] MEDS: HYDROCORTISONE SOD 100 MG in SYRINGE 0 ML IV SCH (08:05)
[2019-05-31] MEDS ORDERED: POTASSIUM CHLORIDE 40 MEQ in SODIUM CHLORIDE 0.9% 1000ML 1,000 ML IV SCH (10:00)
[2019-05-31] MEDS ORDERED: POTASSIUM CHLORIDE 20 MEQ TABCR PO SCH (10:15)
[2019-05-31] MEDS ORDERED: OPTIRAY 320 125ml IV PRN (11:25)
--- NOTE | 2019-05-31 11:35 | CT Scan Report ---
CT ANGIOGRAM OF THE CHEST CLINICAL HISTORY: Cough and dyspnea. COMPARISON STUDY: Chest x-ray dated 05/29/2019. TECHNIQUE: Following the IV administration of 85 cc of Optiray 320, CT angiogram of the chest was per formed from the upper abdomen to the thoracic inlet utilizing the pulmonary embolus protocol. Images are reviewed in the axial, sagittal, and coronal planes. 3-D MIPS images are created and assessed. IV contrast was administered without complication. A dose lowering technique was utilized adhering to the principles of ALARA. CT DOSE: 318.50 mGy.cm FINDINGS: Thyroid: Atrophic. Thoracic aorta: There are scattered foci of atherosclerotic calcification noted in the thoracic aorta . The thoracic aorta is normal in caliber and demonstrates bovine variant arch anatomy. No dissection is seen. Pulmonary vasculature: The pulmonary trunk is normal in caliber. There are no filling defects identif ied in main, lobar, or segmental pulmonary branches to suggest pulmonary embolus. Heart: The heart is top normal in size and without pericardial effusion. Lungs and pleural spaces: There are trace pleural effusions with dependent atelectasis. Scarring/atel ectasis is seen in the lower lobes. No airspace consolidation is identified typical for pneumonia. A calcified granuloma is noted in the right upper lobe. The trachea and central airways are clear. Mild diffuse peribronchial thickening is noted. Mediastinum: There is no mediastinal lymphadenopathy. Ale: Clear. Axillae: There is no axillary lymphadenopathy. Upper abdomen: Partially visualized upper abdominal viscera is within normal limits. Skeletal structures: No lytic or blastic bony lesions are seen. There are healed right-sided rib frac tures. IMPRESSION: 1. There is no evidence of pulmonary embolus in the main, lobar, or segmental pulmonary arteries. 2. There is no airspace consolidation typical for pneumonia. 3. Trace pleural effusions are identified. 4. Mild diffuse peribronchial thickening suggests reactive airway disease. Clinical correlation will be required. Electronically signed by: Dale Watts M.D. 05/31/2019 11:33 AM
[2019-05-31] MEDS: AZITHROMYCIN 500 MG in DEXTROSE 5% 250 ML IV SCH ×2 (12:08→12:30)
--- NOTE | 2019-05-31 18:13 | Discharge Summary ---
Date of Service May 31, 2019 Admission HPI Per Admitting Provider The patient is a 50-year-old female with past medical history including Arcadia's disease, who had developed generalized myalgias arthralgias and flu type symptoms over the past 48 hours. She had taken additional hydrocortisone pills that she is directed when she gets ill, but has had significant progression of symptoms. She has not had any sick exposures or recent travels. She reports that she feels very cold and had difficulty stopping shivering. She is having significant reflux at this time. Principal Diagnosis addisons crisis sirs secondary to bronchitis hypokalemia Discharge Exam Constitutional well developed and average body habitus Eyes no conjunctival abnormality and no scleral abnormality Neck normal visual inspection and trachea midline Respiratory normal respiratory effort; no respiratory distress Auscultation: lungs clear to auscultation bilaterally Cardiovascular RRR, no murmur, no edema Gastrointestinal (Abdomen) normal bowel sounds, soft, nontender, no hepatosplenomegaly Discharge Data Allergies Allergy/AdvReac Type Severity Reaction Status Date / Time acetaminophen Allergy Unknown insomnia,it Verified 01/16/16 13:45 ney fludrocortisone Allergy Unknown Palpitations,nightmares, Verified 05/30/19 03:41 numbness in hands hydrocodone Allergy Unknown insomnia,it Verified 01/16/16 13:45 ney tramadol Allergy Verified 05/31/19 10:46 Consultations 05/30/19 00:18 ED Decision to Admit Stat 05/30/19 02:40 Consult Cardiology Routine Consult Case Management - Discharge Planning Routine Ordered Studies 05/31/19 10:33 CT angio chest PE MPRESSION: 1. There is no evidence of pulmonary embolus in the main, lobar, or segmental pulmonary arteries. 2. There is no airspace consolidation typical for pneumonia. 3. Trace pleural effusions are identified. 4. Mild diffuse peribronchial thickening suggests reactive airway disease. 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 She did bolus herself with oral hydrocortisone as she has been directed prior to hospital, but nausea had made taking it difficult Place on hydrocortisone 100 mg IV every 8 hours. Pt was volume resusitated and responded (2) Acute adrenal insufficiency: iv hydrocortisone will transiton to normal dosing at discharge (3) Acute kidney injury: resolved (4) Sepsis: SIRS with hypotension responsive to IV fluids, with lowest blood pressure 85/60. Procalcitonin elevated 17.31, and lactate elevated 2.5, repeat lactate pending. Her principal area of symptomatology is pulmonary, but cxr is without infiltrate but maybe bronchitis Empiric treatment with ceftriaxone IV and azithromycin IV. transitioned to levaquin at time of discharge culture results negative at time of discharge (5) Hypotension: she typically has lower blood pressrue (6) Elevated troponin: Troponin is mildly elevated at 0.05. Patient has no symptoms referable to chest discomfort. Likely demand ischemia with acute kidney injury. cardiac echo with normal findings (7) Hyperglycemia: May be part of a stress response, may be part of increased dosages of oral hydrocortisone (8) Hypothyroidism (acquired): Continue levothyroxine sodium 50 mcg daily. TSH level is normal. Total Time Total Time Spent Total Time Spent (In Minutes): greater than 30 minutes were required to prepare discharge Discharge Plan Discharge Items Patient Disposition: Home - Self-Care Reason For Visit: ADRENAL INSUFFICIENCY, JASSI, URI Discharge Diagnosis: low blood pressure steroid deficiency low potassium cough/bronchitis Discharge Goals: Decrease discomfort Activity: Resume your previous activity Non-emergency contact: Primary Care Provider Call non-emergency contact if: you have any medication questions Follow-up/Referrals: Harlan Garay MD [Primary Care Provider] - 06/01/19 11:30 am (Please, follow up with Dr. Cevallos TOMORROW, June 01, at 11:30 am. *If you need to change this appointment, call the office at [phone].) Diet: Regular Diet Comment: enocurage salt intake Addtl Provider Instructions: please drink plenty of fluids and salt/ electrolyte liquids your Ct shows some bronchitis, please complete outpatient antibiotics and use inhaler if your cough worsens or you feel short of breath please follow up with Dr Emmanuel this week please resume your usual prednisone normal dosing schedule Prescriptions: New levofloxacin [Levaquin] 500 mg tablet 500 mg PO DAILY 5 Days Qty: 5 RF: 0 albuterol sulfate 90 mcg/actuation HFA aerosol inhaler 1 puffs INH Q6H PRN (Reason: shortness of breath or wheezing) Qty: 6.7 RF: 0 Continued trazodone 50 mg tablet 50 mg PO HS RF: 0 levothyroxine 50 mcg tablet 50 mcg PO DAILY RF: 0 multivitamin [Multiple Vitamins] Tablet 1 tab PO DAILY RF: 0 cholecalciferol (vitamin D3) [Vitamin D3] 1,000 unit Tablet 1,000 unit PO DAILY RF: 0 hydrocortisone 5 mg tablet See Rx Instructions .ROUTE .COMPLEX RF: 0 Stand-Alone Forms: [facility] Discharge Orders: Discharge Order (Routine); Ordered 05/31/19 Ordered By: Jethro Arriaga Admission Data Admit Date/Time: 05/30/19 01:06 Attending Provider: Jethro Arriaga Admit Provider: Rah Daniel Primary Care Provider: Harlan Garay V. Other Providers: Naresh Madera Service: Telemetry Medical Other Interventions: Discharge Summary Assessment (RN) Last Done: 05/31/19 14:56 DC Date/Time DO NOT enter until pt leaves facility: 05/31/19 15:18
== END 2019-05-31 15:18 | disposition home or self-care (01) | DRG 872 ==
LOC: ED 22:41 → 2N 05-30 01:06 → SUATTDRO 05-30 01:06 → 2N 05-30 02:30
DX: E27.1 Primary adrenocortical insufficiency; J40 Bronchitis, not specified as acute or chronic; N17.9 Acute kidney failure, unspecified; R73.9 Hyperglycemia, unspecified; A41.9 Sepsis, unspecified organism; K21.9 Gastro-esophageal reflux disease without esophagitis; E03.9 Hypothyroidism, unspecified; Z79.899 Other long term (current) drug therapy